=== PATIENT | male | born 1980 | race Two or more races ===

== ENCOUNTER 2023-11-26 02:15 | Inpatient (IN) | payer SELFPAY ==
[~2023-11-26] VITALS: Ht 177.8 cm; Wt 92.0 kg
[2023-11-26] VITALS (7 sets, daily range): BP systolic 114–119; BP diastolic 74–80; PULSE 83–101; RESP 16–20; TEMP 98–98.6; O2SAT 96–98
[2023-11-26 02:52] LABS: Alanine Aminotransferase 50 U/L (7-40); Albumin 3.2 g/dL (3.2-4.8); Alkaline Phosphatase 266 U/L (46-116); Anion Gap 12 (5-15); Aspartate Aminotransferase 123 U/L (13-40); BUN/Creatinine Ratio 8.4 (10.0-20.0); Blood Urea Nitrogen 9 mg/dL (9-23); Calcium 8.7 mg/dL (8.7-10.4); Carbon Dioxide 16 mmol/L (20-30); Chloride 103 mmol/L (98-107); Glucose 228 mg/dL (74-106); Magnesium 1.5 mg/dL (1.6-2.6); Sodium 131 mmol/L (136-145)
[2023-11-26 02:53] LABS: INR 1.06 (0.9-1.15); Partial Thromboplastin Time 29.7 SEC (24.5-34.5); Prothrombin Time 11.1 sec (9.3-11.8); Total Protein 6.4 g/dL (5.7-8.2)
[2023-11-26] MEDS: SODIUM CHLORIDE 0.9% 1,000 ML IV ONE (04:08)
[2023-11-26 04:13] LABS: Basophils # (auto) 0.1 10 ^3/uL (0-0.2); Basophils % (auto) 0.9 % (0.0-2.0); Eosinophils # (auto) 0.1 10 ^3/uL (0-0.8); Eosinophils % (auto) 0.6 % (0.0-7.0); Hematocrit 36.7 % (41.0-53.0); Hemoglobin 12.6 g/dL (13.5-17.5); Lymphocytes # (auto) 3.1 10 ^3/uL (0.4-5.4); Lymphocytes % (auto) 38.6 % (10.0-50.0); Mean Corpuscular Hemoglobin 34.1 pg (28.0-32.0); Mean Corpuscular Hgb Conc. 34.2 g/dL (32.0-36.0); Mean Corpuscular Volume 99.7 fL (80.0-100.0); Monocytes # (auto) 0.7 10 ^3/uL (0-1.3); Monocytes % (auto) 8.5 % (0.0-12.0); Neutrophils # (auto) 4.1 10 ^3/uL (1.6-8.6); Neutrophils % (auto) 51.4 % (37.0-80.0); Nucleated Red Blood Cells % 0.1 %; Red Blood Cells 3.68 10^6/uL (4.5-5.90); Red Cell Distribution Width 13.1 % (11.8-14.3)
[2023-11-26] MEDS: MAGNESIUM SULFATE 1GM/100ML 100 ML IV ONE (04:29)
[2023-11-26] MEDS: POTASSIUM CHL 20 Meq TABLET PO ONE (04:30)
[2023-11-26] MEDS: LORazepam 2MG/ML-1ML VIAL IV ONE (04:52)
[2023-11-26] MEDS: chlordiazePOXIDE HCL 25 MG CAP PO ONE (04:52)
[2023-11-26] MEDS ORDERED: DOCUSATE SOD 100 MG CAP PO PRN (06:30)
[2023-11-26] MEDS ORDERED: hydrALAZINE HCL 20 MG/ML VL IV PRN (06:30)
[2023-11-26] MEDS ORDERED: NITROGLYCERIN 0.4 MG SL TAB SL PRN (06:30)
[2023-11-26] MEDS ORDERED: ACETAMINOPHEN 325 MG TAB PO PRN (06:30)
[2023-11-26] MEDS ORDERED: ONDANSETRON HCL 4 MG/2 ML VIAL IV PRN (06:30)
[2023-11-26] MEDS: SODIUM CHLORIDE 0.9% 1,000 ML IV SCH (06:37)
[2023-11-26 07:06] LABS: Urine Bacteria None Seen /hpf (None Seen); Urine WBC None Seen /hpf (0 - 3)
[2023-11-26 07:29] LABS: Alanine Aminotransferase 52 U/L (7-40); Alkaline Phosphatase 262 U/L (46-116); Anion Gap 8 (5-15); Aspartate Aminotransferase 117 U/L (13-40); BUN/Creatinine Ratio 13.2 (10.0-20.0); Blood Urea Nitrogen 12 mg/dL (9-23); Calcium 8.4 mg/dL (8.7-10.4); Carbon Dioxide 20 mmol/L (20-30); Chloride 105 mmol/L (98-107); Glucose 100 mg/dL (74-106); Potassium 3.4 mmol/L (3.5-5.1); Sodium 133 mmol/L (136-145)
[2023-11-26 07:30] LABS: Bilirubin, Total 1.6 mg/dL (0.2-1.0); Total Protein 5.8 g/dL (5.7-8.2)
[2023-11-26 07:32] LABS: Amphetamine Screen, Urine Neg (NEGATIVE); Barbiturate Scree,Urine Neg (NEGATIVE); Benzodiazephine Screen, Urine Neg (NEGATIVE); Cannabinoid Screen, Urine Neg (NEGATIVE); Cocaine Screen, Urine Neg (NEGATIVE); Opiate Scree,Urine Pos (NEGATIVE); Phencyclidine Screen, Urine Neg (NEGATIVE)
[2023-11-26 07:51] LABS: Urine Blood Negative /uL (Negative); Urine Clarity Clear (Clear); Urine Color Yellow (Yellow); Urine Protein, UAD Negative (Negative); Urine Specific Gravity 1.011 (1.001-1.035); Urine Urobilinogen Normal (Negative); Urine pH 6.5 (5.0-9.0)
[2023-11-26 08:11] LABS: Basophils # (auto) 0.1 10 ^3/uL (0-0.2); Basophils % (auto) 1.1 % (0.0-2.0); Eosinophils # (auto) 0.1 10 ^3/uL (0-0.8); Eosinophils % (auto) 0.8 % (0.0-7.0); Hematocrit 35.1 % (41.0-53.0); Lymphocytes # (auto) 3.5 10 ^3/uL (0.4-5.4); Lymphocytes % (auto) 35.7 % (10.0-50.0); Mean Corpuscular Hemoglobin 34.1 pg (28.0-32.0); Mean Corpuscular Hgb Conc. 34.1 g/dL (32.0-36.0); Mean Corpuscular Volume 99.9 fL (80.0-100.0); Monocytes # (auto) 0.9 10 ^3/uL (0-1.3); Monocytes % (auto) 9.1 % (0.0-12.0); Neutrophils # (auto) 5.2 10 ^3/uL (1.6-8.6); Neutrophils % (auto) 53.3 % (37.0-80.0); Nucleated Red Blood Cells % 0.2 %; Red Blood Cells 3.51 10^6/uL (4.5-5.90); Red Cell Distribution Width 13.3 % (11.8-14.3); White Blood Cell 9.7 10^3/uL (4.4-10.8)
[2023-11-26] MEDS: ASPirin 81 mg TAB PO SCH (10:53)
[2023-11-26] MEDS: POTASSIUM CHL 10 Meq TABLET PO ONE (10:53)
[2023-11-26] MEDS: HYDROcodone-ACET 5/325MG TAB PO PRN (12:30)
[2023-11-26] MEDS ORDERED: DIPH50TA9 PO (13:24)
[2023-11-26] MEDS ORDERED: LISI40TA16 PO (13:24)
[2023-11-26] MEDS ORDERED: TRAM-626 PO (13:24)
[2023-11-26] MEDS ORDERED: OMEP20TA PO (13:24)
[2023-11-26] MEDS ORDERED: ONDA-180 PO (13:24)
[2023-11-26] MEDS ORDERED: INDO50CA82 PO (13:24)
[2023-11-26] MEDS ORDERED: HYDR25TA4 PO (13:24)
[2023-11-26] MEDS ORDERED: ATOR-507 PO (13:24)
[2023-11-26 15:26] LABS: Triglycerides 423 mg/dL (< 150)
[2023-11-26 15:28] LABS: Cholesterol 336 mg/dL (< 200); HDL Cholesterol 15 mg/dL (40-59)
[2023-11-26] MEDS: MORPHINE SULFATE INJ 2 MG/ml SYRG IV PRN ×2 (17:02→21:28)
[2023-11-26] MEDS: hydroCHLOROthiazide 25 MG TAB PO SCH (20:20)
[2023-11-26] MEDS: ATORVASTATIN 20 MG TAB PO SCH (20:20)
[2023-11-26] MEDS ORDERED: ATORVASTATIN 20 MG TAB PO SCH (22:00)
[2023-11-26] MEDS: MELATONIN 5 MG TAB PO ONE (22:14)
[2023-11-27] VITALS (8 sets, daily range): BP systolic 105–130; BP diastolic 73–88; PULSE 74–115; RESP 14–20; TEMP 97.2–98.5; O2SAT 94–100
[2023-11-27 06:21] LABS: Basophils # (auto) 0.1 10 ^3/uL (0-0.2); Eosinophils # (auto) 0.1 10 ^3/uL (0-0.8); Eosinophils % (auto) 1.6 % (0.0-7.0); Lymphocytes # (auto) 3.4 10 ^3/uL (0.4-5.4); Neutrophils # (auto) 3.2 10 ^3/uL (1.6-8.6)
[2023-11-27 06:23] LABS: Basophils % (auto) 0.7 % (0.0-2.0); Hematocrit 33.7 % (41.0-53.0); Hemoglobin 11.3 g/dL (13.5-17.5); Lymphocytes % (auto) 46.6 % (10.0-50.0); Mean Corpuscular Hemoglobin 33.8 pg (28.0-32.0); Mean Corpuscular Hgb Conc. 33.6 g/dL (32.0-36.0); Mean Corpuscular Volume 100.5 fL (80.0-100.0); Monocytes # (auto) 0.6 10 ^3/uL (0-1.3); Monocytes % (auto) 7.6 % (0.0-12.0); Neutrophils % (auto) 43.5 % (37.0-80.0); Red Blood Cells 3.35 10^6/uL (4.5-5.90); Red Cell Distribution Width 13.2 % (11.8-14.3); White Blood Cell 7.4 10^3/uL (4.4-10.8)
[2023-11-27 06:56] LABS: Alanine Aminotransferase 42 U/L (7-40); Albumin 3.1 g/dL (3.2-4.8); Alkaline Phosphatase 194 U/L (46-116); Anion Gap 8 (5-15); Aspartate Aminotransferase 106 U/L (13-40); BUN/Creatinine Ratio 10.8 (10.0-20.0); Bilirubin, Total 1.4 mg/dL (0.2-1.0); Blood Urea Nitrogen 8 mg/dL (9-23); Carbon Dioxide 21 mmol/L (20-30); Chloride 108 mmol/L (98-107); Glucose 92 mg/dL (74-106); Potassium 3.9 mmol/L (3.5-5.1); Sodium 137 mmol/L (136-145); Total Protein 5.8 g/dL (5.7-8.2)
[2023-11-27] MEDS: LISINOPRIL 20 MG TAB PO SCH (09:26)
[2023-11-27] MEDS: AMOXICILLIN/CLAVUL 875 MG TAB PO SCH (14:09)
[2023-11-27] MEDS: IOHEXOL 300 MG/ML 100ML BOTTLE IJ ONE (14:49)
[2023-11-27] MEDS ORDERED: AUG875T PO (15:37)
[2023-11-27] MEDS ORDERED: LORA-483 GT (15:37)
[2023-11-27] MEDS ORDERED: OFL50TS OT (15:37)
[2023-11-27] MEDS: OFLOXACIN OTIC(EAR) 0.3 % DROP 5ML EACH EAR SCH (21:54)
[2023-11-28 05:26] VITALS: BP 118/72; PULSE 91; RESP 16; TEMP 98.5; O2SAT 96
[2023-11-28 06:19] LABS: Eosinophils # (auto) 0.1 10 ^3/uL (0-0.8); Hemoglobin 12.6 g/dL (13.5-17.5); Monocytes # (auto) 0.7 10 ^3/uL (0-1.3)
[2023-11-28 06:21] LABS: Basophils # (auto) 0 10 ^3/uL (0-0.2); Basophils % (auto) 0.6 % (0.0-2.0); Eosinophils % (auto) 1.3 % (0.0-7.0); Hematocrit 36.9 % (41.0-53.0); Lymphocytes # (auto) 3.6 10 ^3/uL (0.4-5.4); Lymphocytes % (auto) 42.6 % (10.0-50.0); Mean Corpuscular Hemoglobin 34.3 pg (28.0-32.0); Mean Corpuscular Hgb Conc. 34.2 g/dL (32.0-36.0); Mean Corpuscular Volume 100.3 fL (80.0-100.0); Monocytes % (auto) 8.4 % (0.0-12.0); Neutrophils # (auto) 3.9 10 ^3/uL (1.6-8.6); Neutrophils % (auto) 47.1 % (37.0-80.0); Nucleated Red Blood Cells % 0.1 %; Red Blood Cells 3.68 10^6/uL (4.5-5.90); Red Cell Distribution Width 12.9 % (11.8-14.3); White Blood Cell 8.4 10^3/uL (4.4-10.8)
[2023-11-28 06:34] LABS: Alanine Aminotransferase 43 U/L (7-40); Albumin 3.4 g/dL (3.2-4.8); Alkaline Phosphatase 184 U/L (46-116); Anion Gap 12 (5-15); Aspartate Aminotransferase 122 U/L (13-40); BUN/Creatinine Ratio 12.5 (10.0-20.0); Blood Urea Nitrogen 8 mg/dL (9-23); Calcium 9.3 mg/dL (8.5-10.1); Carbon Dioxide 20 mmol/L (20-30); Chloride 107 mmol/L (98-107); Glucose 88 mg/dL (74-106); Sodium 139 mmol/L (136-145)
[2023-11-28 06:35] LABS: Total Protein 6.2 g/dL (5.7-8.2)
[2023-11-28 08:07] LABS: Erythrocyte Sedimentation Rate 41 mm/hr (0-20)
[2023-11-28 09:00] VITALS: BP 126/90; PULSE 72; RESP 14; TEMP 97.6; O2SAT 95
[2023-11-28] MEDS ORDERED: ATOR20TA50 PO (11:56)
[2023-11-28] MEDS ORDERED: ASPI-325 PO (11:56)
== END 2023-11-28 12:39 | disposition left against medical advice (07) | DRG 311 ==
LOC: ER 02:15 → EDBD 02:15 → TELE 06:30 → TELE-E-ADS 11:48 → TELE-EAST 16:49
PROVIDERS: ADMIT Internal Medicine; ATTEND Emergency Medicine
DX: I20.0 Unstable angina (principal); F10.939 Alcohol use, unspecified with withdrawal, unspecified; E78.5 Hyperlipidemia, unspecified; Z96.649 Presence of unspecified artificial hip joint; F17.290 Nicotine dependence, other tobacco product, uncomplicated; Y90.9 Presence of alcohol in blood, level not specified; Z53.29 Procedure and treatment not carried out because of patient's decision for other reasons; R73.9 Hyperglycemia, unspecified; J01.90 Acute sinusitis, unspecified; K76.0 Fatty (change of) liver, not elsewhere classified; K70.9 Alcoholic liver disease, unspecified; I10 Essential (primary) hypertension; Z82.49 Family history of ischemic heart disease and other diseases of the circulatory system; Z80.0 Family history of malignant neoplasm of digestive organs
CPT/HCPCS: 36415; 70450; 70486; 71045; 71260; 76705; 80053; 80061; 80307; 80320; 81001; 82140; 83036; 83735; 83880; 84439; 84443; 84484; 85025; 85379; 85610; 85652; 85730; 86141; 93005; 93306; G0378